=== PATIENT | female | born 1990 | race Two or more races ===

== ENCOUNTER 2016-10-22 16:51 | Emergency (ER) | payer MEDICAID ==
[~2016-10-22] VITALS: Ht 170.2 cm; Wt 104.3 kg
[2016-10-22 16:59] VITALS: BP 160/100
--- NOTE | 2016-10-22 19:21 | NUR ---
Patient returned from XRAY, transferred to bed 6. RN evaluating patient at bedside.
--- NOTE | 2016-10-22 19:23 | NUR ---
PATIENT PRESENTS TO ED WITH L KNEE PAIN X 2 DAYS, DENIES ANY DIRECT TRAUMA TO THE AREA . PT DENIES N/V/D; SKIN IS PINK/WARM/DRY; AAOX4 WITH EVEN AND STEADY GAIT; LUNGS CLEAR BL; HR EVEN AND REGULAR; PT DENIES ANY FEVER, CP, SOB, OR COUGH AT THIS TIME; PATIENT STATES PAIN OF 9/10 AT THIS TIME; VSS; PATIENT POSITIONED FOR COMFORT; HOB ELEVATED; BEDRAILS UP X2; BED DOWN. ER MD MADE AWARE OF PT STATUS.
--- NOTE | 2016-10-22 20:07 | NUR ---
Patient being evaluated by physician DR CÁRDENAS at bedside.
[2016-10-22] MEDS ORDERED: KETOROLAC 30 MG/ML VIAL IM ONE (20:30)
[2016-10-22] MEDS ORDERED: HYDROcodone/APAP 5/325 MG 1 TAB TAB PO ONE (20:30)
[2016-10-22 20:54] VITALS: BP 142/89
--- NOTE | 2016-10-22 20:55 | NUR ---
Patient discharged with v/s stable. Written and verbal after care instructions given and explained. Patient alert, oriented and verbalized understanding of instructions. Ambulatory with steady gait. All questions addressed prior to discharge. ID band removed. Patient advised to follow up with PMD. Rx of NAPROSYN 500MG AND NORCO 5/325MG given. Patient educated on indication of medication including possible reaction and side effects. Opportunity to ask questions provided and answered.
== END 2016-10-22 20:54 | disposition home or self-care (01) ==
LOC: MED 17:02
DX: S83.92XA Sprain of unspecified site of left knee, initial encounter (principal); F17.210 Nicotine dependence, cigarettes, uncomplicated; W01.0XXA Fall on same level from slipping, tripping and stumbling without subsequent striking against object, initial encounter; Y93.89 Activity, other specified; Y92.89 Other specified places as the place of occurrence of the external cause; Y99.8 Other external cause status
CPT/HCPCS: 29505; 73562; 96372; 99284; J1885

== ENCOUNTER 2017-12-09 22:32 | Inpatient (IN) | payer MEDICAID ==
[~2017-12-09] VITALS: Ht 170.2 cm; Wt 119.3 kg
[~2017-12-09 22:32] MED LIST: AMPICILLIN 2,000 MG VIAL ONE
[2017-12-09] MEDS ORDERED: PREN1SGL25 PO (22:48)
[2017-12-09] MEDS ORDERED: LACTATED RINGERS 1,000 ML IV SCH (22:49)
[2017-12-09] MEDS ORDERED: CARBOPROST 250 MCG/ML AMP IM PRN (22:50)
[2017-12-09] MEDS ORDERED: OXYTOCIN 10 UNITS/ML VIAL IM SCH (22:50)
[2017-12-09] MEDS ORDERED: NALBUPHINE HYDROCHLORIDE 10 MG/ML VIAL IVP PRN (22:50)
[2017-12-09] MEDS ORDERED: METHYLERGONOVINE 0.2 MG/ML AMP IM PRN (22:50)
[2017-12-09] MEDS ORDERED: PROMETHAZINE 25 MG/ML VIAL IVP PRN (22:50)
[2017-12-09] MEDS ORDERED: AMPICILLIN 2,000 MG in NACL 0.9% MINI-BAG PLUS 100 ML IV SCH (23:00)
[2017-12-09] MEDS ORDERED: NALBUPHINE HYDROCHLORIDE 10 MG/ML VIAL ONE (23:18)
[2017-12-09 23:29] LABS: BASOPHILS # (AUTO) 0.2 K/uL (0.00-0.22); BASOPHILS % (AUTO) 1.9 % (0.0-2.0); EOSINOPHILS # (AUTO) 0.1 K/uL (0-0.4); EOSINOPHILS % (AUTO) 0.8 % (0.0-4.0); HEMATOCRIT 37.5 % (36-48); HEMOGLOBIN 12.4 g/dL (12.0-16.0); LYMPHOCYTES # (AUTO) 2.7 K/uL (2.5-16.5); LYMPHOCYTES % (AUTO) 28.4 % (20.5-51.1); MEAN CORPUSCULAR HEMOGLOBIN 30 pg (27-31); MEAN CORPUSCULAR HGB CONC 33 g/dL (33-37); MEAN CORPUSCULAR VOLUME 89.5 fL (80-94); MONOCYTES # (AUTO) 0.5 K/uL (0.8-1.0); MONOCYTES % (AUTO) 5.2 % (1.7-9.3); NEUTROPHILS # (AUTO) 5.9 K/uL (1.8-7.7); NEUTROPHILS % (AUTO) 63.7 % (42.2-75.2); PLATELET COUNT (AUTO) 179 K/uL (140-450); RED BLOOD CELL COUNT(AUTO) 4.19 MIL/uL (4.20-5.40); RED CELL DISTRIBUTION WIDTH 15.4 % (11.6-13.7); WHITE BLOOD COUNT (AUTO) 9.4 K/uL (4.8-10.8)
[2017-12-09 23:50] LABS: ALBUMIN 2.3 g/dL (3.4-5.0); ANION GAP 13.4 (8-16); CARBON DIOXIDE 24.6 mmol/L (21-32); CREATININE 0.8 mg/dL (0.6-1.3); TOTAL BILIRUBIN 0.2 mg/dL (0.0-1.0)
[2017-12-10] MEDS ORDERED: OXYTOCIN 10 UNITS/ML VIAL ONE (00:02)
[2017-12-10] MEDS ORDERED: BUPIVACAINE-MPF 0.5% 10 ML VIAL INJ ONE (00:03)
[2017-12-10] MEDS ORDERED: OXYTOCIN 20 UNITS/LR PREMIX 1,000 ML IV ONE (01:42)
[2017-12-10] MEDS ORDERED: METHYLERGONOVINE 0.2 MG/ML AMP IM PRN (02:05)
[2017-12-10] MEDS ORDERED: BENZOCAINE/MENTHOL 20%-0.5% 60 GM CAN TP PRN (02:05)
[2017-12-10] MEDS ORDERED: IBUPROFEN 800 MG TAB PO PRN (02:05)
[2017-12-10] MEDS ORDERED: MEASLES, MUMPS, AND RUBELLA 1 VIAL SQVAC PRN (02:05)
[2017-12-10] MEDS ORDERED: oxyCODONE/APAP 5/325 MG 1 TAB TAB PO PRN (02:05)
[2017-12-10] MEDS ORDERED: OXYTOCIN 10 UNITS/ML VIAL IM PRN (02:05)
[2017-12-10] MEDS ORDERED: TEMAZEPAM 15 MG CAP PO PRN (02:05)
[2017-12-10 04:57] VITALS: BP 138/81
[2017-12-10] MEDS: HYDROcodone/APAP 5/325 MG 1 TAB TAB PO PRN ×2 (11:54→18:05)
[2017-12-10] MEDS ORDERED: DOCUSATE SOD/SENNA 50/8.6 MG 1 TAB PO SCH (21:00)
[2017-12-11] MEDS: HYDROcodone/APAP 5/325 MG 1 TAB TAB PO PRN (01:12)
[2017-12-11 08:43] LABS: HEMATOCRIT 30.7 % (36-48); HEMOGLOBIN 10.2 g/dL (12.0-16.0)
--- NOTE | 2017-12-11 11:07 | NUR ---
PATIENT HAS BEEN SCREENED AND CATEGORIZED LOW NUTRITION RISK. PATIENT WILL BE SEEN WITHIN 7 DAYS OF ADMISSION. 12/17/[address]
[2017-12-12] MEDS: HYDROcodone/APAP 5/325 MG 1 TAB TAB PO PRN (08:28)
[2017-12-12] MEDS ORDERED: IBUP-1842 PO (12:13)
== END 2017-12-12 16:15 | disposition home or self-care (01) | DRG 560 ==
LOC: MLD 22:32 → OBSVTOIN 22:49 → MFCC 12-10 08:15
PROVIDERS: ADMIT Obstetrics & Gynecology; ATTEND Obstetrics & Gynecology
PROC: 10907ZC Drainage of Amniotic Fluid, Therapeutic from Products of Conception, Via Natural or Artificial Opening (ICD-10-PCS; principal; 2017-12-09)
PROC: 10E0XZZ Delivery of Products of Conception, External Approach (ICD-10-PCS; 2017-12-09)
PROC: 3E033VJ Introduction of Other Hormone into Peripheral Vein, Percutaneous Approach (ICD-10-PCS; 2017-12-09)
PROC: 3E0R3BZ Introduction of Anesthetic Agent into Spinal Canal, Percutaneous Approach (ICD-10-PCS; 2017-12-09)
PROC: 00HU33Z Insertion of Infusion Device into Spinal Canal, Percutaneous Approach (ICD-10-PCS; 2017-12-09)
PROC: 3E0234Z Introduction of Serum, Toxoid and Vaccine into Muscle, Percutaneous Approach (ICD-10-PCS; 2017-12-09)
DX: O69.81X0 Labor and delivery complicated by cord around neck, without compression, not applicable or unspecified (principal); Z68.41 Body mass index [BMI] 40.0-44.9, adult; E66.01 Morbid (severe) obesity due to excess calories; O77.0 Labor and delivery complicated by meconium in amniotic fluid; O99.214 Obesity complicating childbirth; Z37.0 Single live birth; Z3A.40 40 weeks gestation of pregnancy; Z23 Encounter for immunization
CPT/HCPCS: 36415; 59409; 80053; 85018; 85025; 86592; 86886; 86900; 86901; 90715; G0378; J0290; J2300; J2590; J3490

== ENCOUNTER 2018-05-20 18:48 | Emergency (ER) | payer MEDICAID ==
[~2018-05-20] VITALS: Ht 170.2 cm; Wt 115.7 kg
[~2018-05-20 18:48] MED LIST changes: -AMPICILLIN 2,000 MG VIAL ONE; +IBUP-1842 PO; +PREN1SGL25 PO
[2018-05-20 18:52] VITALS: BP 128/72
--- NOTE | 2018-05-20 19:10 | NUR ---
27/F came in w c/o Epigastric pain with vomiting since this morning. Pt also reports dysuria. Abd soft, round , -tenderness, BS active x4. Denies diarrhea, hematuria. PMH: gallstones
[2018-05-20 19:51] LABS: BASOPHILS % (AUTO) 0.2 % (0.0-2.0); EOSINOPHILS % (AUTO) 0.2 % (0.0-4.0); HEMATOCRIT 41.9 % (36-48); HEMOGLOBIN 13.6 g/dL (12.0-16.0); LYMPHOCYTES # (AUTO) 1.6 K/uL (2.5-16.5); LYMPHOCYTES % (AUTO) 14.3 % (20.5-51.1); MEAN CORPUSCULAR HEMOGLOBIN 28 pg (27-31); MEAN CORPUSCULAR HGB CONC 33 g/dL (33-37); MEAN CORPUSCULAR VOLUME 86.2 fL (80-94); MONOCYTES # (AUTO) 0.5 K/uL (0.8-1.0); MONOCYTES % (AUTO) 4.7 % (1.7-9.3); NEUTROPHILS # (AUTO) 9.2 K/uL (1.8-7.7); NEUTROPHILS % (AUTO) 80.6 % (42.2-75.2); PLATELET COUNT (AUTO) 230 K/uL (140-450); RED BLOOD CELL COUNT(AUTO) 4.87 MIL/uL (4.20-5.40); RED CELL DISTRIBUTION WIDTH 15.8 % (11.6-13.7); WHITE BLOOD COUNT (AUTO) 11.4 K/uL (4.8-10.8)
[2018-05-20 20:05] LABS: ANION GAP 10.2 (8-16); CARBON DIOXIDE 29.7 mmol/L (21-32); CREATININE 0.6 mg/dL (0.6-1.3); POTASSIUM 3.9 mmol/L (3.5-5.1)
[2018-05-20 20:11] LABS: ALBUMIN 3.5 g/dL (3.4-5.0); TOTAL BILIRUBIN 0.1 mg/dL (0.0-1.0)
[2018-05-20] MEDS ORDERED: KETOROLAC 60 MG/2 ML VIAL IM ONE (21:05)
[2018-05-20] MEDS ORDERED: MORPHINE SULFATE 4 MG/ML SYR IM ONE (21:40)
[2018-05-20] MEDS ORDERED: ONDANSETRON 4 MG ODT PO ONE (21:40)
[2018-05-20 22:37] VITALS: BP 118/61
--- NOTE | 2018-05-20 22:37 | NUR ---
Patient discharged with v/s stable. Written and verbal after care instructions given and explained. Patient alert, oriented and verbalized understanding of instructions. Ambulatory with steady gait. All questions addressed prior to discharge. ID band removed. Patient advised to follow up with PMD. Rx of MOTRIN, ZOFRAN, NORCO given. Patient educated on indication of medication including possible reaction and side effects. Opportunity to ask questions provided and answered.
== END 2018-05-20 22:37 | disposition home or self-care (01) ==
LOC: MED 18:48
DX: R10.11 Right upper quadrant pain (principal); R11.2 Nausea with vomiting, unspecified; K21.9 Gastro-esophageal reflux disease without esophagitis
CPT/HCPCS: 36415; 80053; 81002; 81025; 83690; 85025; 96372; 99284; J1885; J2270; S0119

== ENCOUNTER 2018-07-04 17:13 | Emergency (ER) | payer MEDICAID ==
[~2018-07-04] VITALS: Ht 170.2 cm; Wt 120.3 kg
[2018-07-04 17:32] VITALS: BP 112/63
--- NOTE | 2018-07-04 17:39 | NUR ---
PATIENT AMBULATED TO BED 04 AT THIS TIME.
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
--- NOTE | 2018-07-04 18:42 | NUR ---
PT. RESTING IN BED, RR EVEN AND UNLABORED. BED IN LOWEST POSITION. BLANKET PROVIDED. WILL CONTINUE TO MONITOR.
--- NOTE | 2018-07-04 19:10 | NUR ---
Pt report given to DIANA ROBIN . Transfer of care at this time.
[2018-07-04] MEDS ORDERED: NACL 0.9% 1,000 ML IV ONE (19:30)
[2018-07-04] MEDS ORDERED: MORPHINE SULFATE 4 MG/ML SYR IVP ONE (19:30)
[2018-07-04] MEDS ORDERED: ONDANSETRON 4 MG/2 ML VIAL IVP ONE (19:30)
[2018-07-04 19:59] LABS: BASOPHILS % (AUTO) 0.2 % (0.0-2.0); HEMATOCRIT 41.7 % (36-48); HEMOGLOBIN 13.9 g/dL (12.0-16.0); LYMPHOCYTES # (AUTO) 1.3 K/uL (2.5-16.5); LYMPHOCYTES % (AUTO) 13.6 % (20.5-51.1); MEAN CORPUSCULAR HEMOGLOBIN 29 pg (27-31); MEAN CORPUSCULAR HGB CONC 33 g/dL (33-37); MEAN CORPUSCULAR VOLUME 86.2 fL (80-94); MONOCYTES # (AUTO) 0.5 K/uL (0.8-1.0); MONOCYTES % (AUTO) 4.8 % (1.7-9.3); NEUTROPHILS # (AUTO) 7.8 K/uL (1.8-7.7); NEUTROPHILS % (AUTO) 81.4 % (42.2-75.2); PLATELET COUNT (AUTO) 195 K/uL (140-450); RED BLOOD CELL COUNT(AUTO) 4.84 MIL/uL (4.20-5.40); RED CELL DISTRIBUTION WIDTH 15.7 % (11.6-13.7); WHITE BLOOD COUNT (AUTO) 9.5 K/uL (4.8-10.8)
--- NOTE | 2018-07-04 19:59 | NUR ---
PATIENT INFORMED THAT FAMILY CALLED FOR PATIENT, PATIENT STATES SHE WILL CALL FAMILY LATER.
[2018-07-04 20:13] LABS: ANION GAP 7.8 (8-16); CARBON DIOXIDE 29.2 mmol/L (21-32); CREATININE 0.8 mg/dL (0.6-1.3)
[2018-07-04 20:24] LABS: ALBUMIN 3.5 g/dL (3.4-5.0); TOTAL BILIRUBIN 0.4 mg/dL (0.0-1.0)
[2018-07-04 21:22] VITALS: BP 123/81
--- NOTE | 2018-07-04 21:23 | NUR ---
pt called family for ride home
== END 2018-07-04 21:22 | disposition home or self-care (01) ==
LOC: MED 17:13
DX: K21.9 Gastro-esophageal reflux disease without esophagitis (principal); Z79.899 Other long term (current) drug therapy
CPT/HCPCS: 36415; 74176; 80053; 81002; 81025; 83690; 85025; 96374; 96375; 99285; J2270; J2405; J7030

== ENCOUNTER 2018-08-10 16:53 | Emergency (ER) | payer MEDICAID ==
[~2018-08-10] VITALS: Ht 170.2 cm; Wt 119.3 kg
[2018-08-10 17:00] VITALS: BP 143/116
--- NOTE | 2018-08-10 17:02 | NUR ---
PT AMBULATED TO ER BED 10
--- NOTE | 2018-08-10 17:05 | NUR ---
27f bib self with c/o n/v/d with diffuse mid abdominal pain but mainly in ruq x 1 wk. Patient reports of nonbloody emesis and diarrhea. Patient denies any fevers or urinary complaints. Patient is aox4 to person, place, situation, and time. RR are even and unlabored. Abd soft and non tender. Patient changed into gown. Awaiting er md bautista. All needs met at this time. Will continue to monitor.
[2018-08-10] MEDS ORDERED: NACL 0.9% 1,000 ML IV ONE (17:10)
[2018-08-10] MEDS ORDERED: ONDANSETRON 4 MG/2 ML VIAL IVP ONE (17:10)
[2018-08-10] MEDS ORDERED: KETOROLAC 30 MG/ML VIAL IVP ONE (17:10)
--- NOTE | 2018-08-10 17:30 | NUR ---
ultrasound by bedside
[2018-08-10 17:32] LABS: BASOPHILS % (AUTO) 0.4 % (0.0-2.0); EOSINOPHILS # (AUTO) 0.1 K/uL (0-0.4); EOSINOPHILS % (AUTO) 1.4 % (0.0-4.0); HEMATOCRIT 42.1 % (36-48); HEMOGLOBIN 13.8 g/dL (12.0-16.0); LYMPHOCYTES # (AUTO) 2.8 K/uL (2.5-16.5); MEAN CORPUSCULAR HEMOGLOBIN 29 pg (27-31); MEAN CORPUSCULAR HGB CONC 33 g/dL (33-37); MEAN CORPUSCULAR VOLUME 86.7 fL (80-94); MONOCYTES # (AUTO) 0.6 K/uL (0.8-1.0); MONOCYTES % (AUTO) 6.7 % (1.7-9.3); NEUTROPHILS # (AUTO) 5.7 K/uL (1.8-7.7); NEUTROPHILS % (AUTO) 61.5 % (42.2-75.2); PLATELET COUNT (AUTO) 222 K/uL (140-450); RED BLOOD CELL COUNT(AUTO) 4.85 MIL/uL (4.20-5.40); RED CELL DISTRIBUTION WIDTH 15.3 % (11.6-13.7); WHITE BLOOD COUNT (AUTO) 9.2 K/uL (4.8-10.8)
[2018-08-10 17:45] LABS: ANION GAP 11.6 (8-16); CARBON DIOXIDE 30.5 mmol/L (21-32); CREATININE 0.8 mg/dL (0.6-1.3); POTASSIUM 4.1 mmol/L (3.5-5.1)
[2018-08-10 17:51] LABS: ALBUMIN 3.4 g/dL (3.4-5.0); TOTAL BILIRUBIN 0.3 mg/dL (0.0-1.0)
[2018-08-10 18:19] LABS: APPEARANCE,URINE CLEAR (CLEAR); BILIRUBIN,URINE NEGATIVE (NEGATIVE); BLOOD, URINE NEGATIVE (NEGATIVE); COLOR,URINE YELLOW (YELLOW); LEUKOCYTE ESTERASE ,URINE TRACE (NEGATIVE); NITRITE, URINE NEGATIVE (NEGATIVE); UGLUCOSE NEGATIVE (NEGATIVE)
[2018-08-10 18:26] LABS: RBC,URINE NONE SEEN /HPF (0-5)
[2018-08-10 18:38] VITALS: BP 138/85
--- NOTE | 2018-08-10 18:38 | NUR ---
Patient discharged with v/s stable. Written and verbal after care instructions given and explained. Patient alert, oriented and verbalized understanding of instructions. Ambulatory with steady gait. All questions addressed prior to discharge. ID band removed. Patient advised to follow up with PMD. Rx of ZOFRAN 4MG ODT, NORCO 5MG-325M AND IBUPROFEN 600MG given. Patient educated on indication of medication including possible reaction and side effects. Opportunity to ask questions provided and answered.
== END 2018-08-10 18:38 | disposition home or self-care (01) ==
LOC: MED 16:53
DX: K80.20 Calculus of gallbladder without cholecystitis without obstruction (principal); K21.9 Gastro-esophageal reflux disease without esophagitis; Z79.899 Other long term (current) drug therapy
CPT/HCPCS: 36415; 76705; 80053; 81001; 81025; 83690; 85025; 87086; 96361; 96374; 96375; 99284; J1885; J2405; J7030; Q0092

== ENCOUNTER 2018-10-01 21:11 | Inpatient (IN) | payer MEDICAID ==
[~2018-10-01] VITALS: Ht 170.2 cm; Wt 122.0 kg
[2018-10-01 21:18] VITALS: BP 143/81
[2018-10-01] MEDS ORDERED: MORPHINE SULFATE 4 MG/ML SYR IVP ONE ×2 (21:35→23:25)
[2018-10-01 21:54] LABS: APPEARANCE,URINE CLEAR (CLEAR); BILIRUBIN,URINE NEGATIVE (NEGATIVE); BLOOD, URINE NEGATIVE (NEGATIVE); COLOR,URINE YELLOW (YELLOW); LEUKOCYTE ESTERASE ,URINE NEGATIVE (NEGATIVE); NITRITE, URINE NEGATIVE (NEGATIVE); UGLUCOSE NEGATIVE (NEGATIVE)
[2018-10-01 22:05] LABS: RBC,URINE 0-5 (RARE) /HPF (0-5); URINE AMORPHOUS URATE 1+ /HPF (None Seen); WBC,URINE 0-5 (RARE) /HPF (0-5)
[2018-10-01] MEDS ORDERED: ONDANSETRON 4 MG/2 ML VIAL IVP ONE (22:05)
[2018-10-01 22:12] LABS: BASOPHILS % (AUTO) 0.1 % (0.0-2.0); EOSINOPHILS % (AUTO) 0.2 % (0.0-4.0); HEMOGLOBIN 13.9 g/dL (12.0-16.0); LYMPHOCYTES % (AUTO) 13.6 % (20.5-51.1); MEAN CORPUSCULAR HEMOGLOBIN 28 pg (27-31); MEAN CORPUSCULAR HGB CONC 32 g/dL (33-37); MEAN CORPUSCULAR VOLUME 86.8 fL (80-94); MONOCYTES # (AUTO) 0.7 K/uL (0.8-1.0); MONOCYTES % (AUTO) 4.6 % (1.7-9.3); NEUTROPHILS # (AUTO) 11.9 K/uL (1.8-7.7); NEUTROPHILS % (AUTO) 81.5 % (42.2-75.2); PLATELET COUNT (AUTO) 249 K/uL (140-450); RED BLOOD CELL COUNT(AUTO) 4.95 MIL/uL (4.20-5.40); RED CELL DISTRIBUTION WIDTH 15.1 % (11.6-13.7); WHITE BLOOD COUNT (AUTO) 14.6 K/uL (4.8-10.8)
[2018-10-01 22:20] LABS: ANION GAP 10.9 (8-16); CARBON DIOXIDE 31.1 mmol/L (21-32); CREATININE 0.7 mg/dL (0.6-1.3)
[2018-10-01] MEDS ORDERED: NACL 0.9% 1,000 ML IV ONE (22:25)
[2018-10-01 22:26] LABS: ALBUMIN 3.8 g/dL (3.4-5.0); TOTAL BILIRUBIN 0.5 mg/dL (0.0-1.0)
[2018-10-02] MEDS: DEXT 5% / NACL 0.45% 1,000 ML IV SCH ×3 (00:13→19:36)
[2018-10-02] MEDS ORDERED: ONDANSETRON 4 MG/2 ML VIAL IM/IVP PRN (00:15)
[2018-10-02] MEDS ORDERED: LORazepam 2 MG/ML VIAL IM/IVP PRN (00:15)
[2018-10-02] MEDS ORDERED: ACETAMINOPHEN 325 MG TAB PO PRN (00:15)
[2018-10-02] MEDS ORDERED: DOCUSATE SODIUM 100 MG GELCAP PO PRN (00:15)
[2018-10-02] MEDS ORDERED: ZOLPIDEM 5 MG TAB PO PRN (00:15)
[2018-10-02] MEDS ORDERED: HYDROcodone/APAP 5/325 MG 1 TAB TAB PO PRN (00:15)
[2018-10-02 01:00] VITALS: BP 111/66
[2018-10-02 01:05] LABS: MAGNESIUM 1.6 mg/dL (1.8-2.4); PHOSPHORUS 3.9 mg/dL (2.5-4.9); THYROID STIMULATING HORMONE 0.87 uIU/mL (0.34-3.74)
[2018-10-02 01:25] LABS: PROTHROMBIN TIME 9.6 secs (10.8-13.4)
[2018-10-02] MEDS ORDERED: MAG SULF 2000 MG/WATER PREMIX 50 ML IV SCH (03:20)
[2018-10-02] MEDS ORDERED: cefTRIAXone 1,000 MG VIAL ONE (03:44)
[2018-10-02 04:00] VITALS: BP 115/76
[2018-10-02] MEDS: metroNIDAZOLE 500 MG/NS PREMIX 100 ML IV SCH ×3 (04:53→20:19)
[2018-10-02] MEDS ORDERED: INFLUENZA VIRUS VACCINE QUAD 0.5 ML SYR IMVAC PRN (05:20)
[2018-10-02 06:25] LABS: BARBITURATE, URINE NEG. ng/ml (NEG <=200); BENZODIAZEPINE, URINE NEG. ng/mL (NEG <=200); CANNABINOID, URINE POS. ng/mL (NEG <=50); COCAINE, URINE NEG. ng/mL (NEG <=300); OPIATE, URINE POS. ng/mL (NEG <=2000); PHENCYCLIDINE SCREEN,URINE NEG. ng/mL (NEG <=25)
[2018-10-02 08:00] VITALS: BP 100/64
[2018-10-02 12:00] VITALS: BP 99/56
[2018-10-02 15:23] LABS: BASOPHILS % (AUTO) 0.4 % (0.0-2.0); EOSINOPHILS # (AUTO) 0.1 K/uL (0-0.4); EOSINOPHILS % (AUTO) 1.1 % (0.0-4.0); HEMATOCRIT 40.6 % (36-48); HEMOGLOBIN 13.2 g/dL (12.0-16.0); MEAN CORPUSCULAR HEMOGLOBIN 28 pg (27-31); MEAN CORPUSCULAR HGB CONC 32 g/dL (33-37); MEAN CORPUSCULAR VOLUME 86.8 fL (80-94); MONOCYTES # (AUTO) 0.7 K/uL (0.8-1.0); MONOCYTES % (AUTO) 6.4 % (1.7-9.3); NEUTROPHILS # (AUTO) 8.1 K/uL (1.8-7.7); NEUTROPHILS % (AUTO) 74.1 % (42.2-75.2); PLATELET COUNT (AUTO) 218 K/uL (140-450); RED BLOOD CELL COUNT(AUTO) 4.68 MIL/uL (4.20-5.40); RED CELL DISTRIBUTION WIDTH 15.2 % (11.6-13.7); WHITE BLOOD COUNT (AUTO) 10.9 K/uL (4.8-10.8)
[2018-10-02 15:38] LABS: ANION GAP 10.7 (8-16); CARBON DIOXIDE 30.3 mmol/L (21-32); CREATININE 0.7 mg/dL (0.6-1.3)
[2018-10-02 16:00] VITALS: BP 100/62
[2018-10-02] MEDS ORDERED: MORPHINE SULFATE 4 MG/ML SYR IVP SCH (18:30)
[2018-10-02 20:00] VITALS: BP 120/72
[2018-10-02] MEDS: NACL 0.9% 1,000 ML IV SCH (21:35)
[2018-10-03] VITALS: BP 122/81
[2018-10-03] MEDS ORDERED: KETOROLAC 30 MG/ML VIAL IVP PRN (01:00)
[2018-10-03] MEDS: metroNIDAZOLE 500 MG/NS PREMIX 100 ML IV SCH ×2 (04:48→13:00)
[2018-10-03] MEDS: NACL 0.9% 1,000 ML IV SCH (04:49)
[2018-10-03 07:00] LABS: BASOPHILS % (AUTO) 0.3 % (0.0-2.0); EOSINOPHILS # (AUTO) 0.1 K/uL (0-0.4); EOSINOPHILS % (AUTO) 1.3 % (0.0-4.0); HEMATOCRIT 39.3 % (36-48); HEMOGLOBIN 12.9 g/dL (12.0-16.0); LYMPHOCYTES # (AUTO) 2.2 K/uL (2.5-16.5); LYMPHOCYTES % (AUTO) 20.1 % (20.5-51.1); MEAN CORPUSCULAR HEMOGLOBIN 29 pg (27-31); MEAN CORPUSCULAR HGB CONC 33 g/dL (33-37); MEAN CORPUSCULAR VOLUME 87.1 fL (80-94); MONOCYTES # (AUTO) 0.9 K/uL (0.8-1.0); MONOCYTES % (AUTO) 7.8 % (1.7-9.3); NEUTROPHILS # (AUTO) 7.8 K/uL (1.8-7.7); NEUTROPHILS % (AUTO) 70.5 % (42.2-75.2); PLATELET COUNT (AUTO) 219 K/uL (140-450); RED BLOOD CELL COUNT(AUTO) 4.52 MIL/uL (4.20-5.40); RED CELL DISTRIBUTION WIDTH 15.4 % (11.6-13.7); WHITE BLOOD COUNT (AUTO) 11.1 K/uL (4.8-10.8)
[2018-10-03 07:43] LABS: ANION GAP 9.4 (8-16); CARBON DIOXIDE 30.6 mmol/L (21-32); CREATININE 0.7 mg/dL (0.6-1.3)
[2018-10-03 07:49] LABS: MAGNESIUM 1.8 mg/dL (1.8-2.4)
[2018-10-03 07:50] LABS: CHOL/HDL RATIO 3.7 (1-4.5)
[2018-10-03 08:00] VITALS: BP 104/62
[2018-10-03] MEDS ORDERED: ACET-9525 PO (08:56)
[2018-10-03] MEDS ORDERED: LACT10CA1 PO (10:15)
[2018-10-03] MEDS ORDERED: CEPH250C16 PO (10:15)
[2018-10-03] MEDS ORDERED: METR250T2 PO (10:15)
== END 2018-10-03 15:40 | disposition home or self-care (01) ==
LOC: MED 21:11 → MTU 10-02 00:18
PROVIDERS: ADMIT General Practice; ATTEND General Practice
DX: K80.00 Calculus of gallbladder with acute cholecystitis without obstruction (principal); E66.01 Morbid (severe) obesity due to excess calories; K76.0 Fatty (change of) liver, not elsewhere classified; E83.42 Hypomagnesemia; I10 Essential (primary) hypertension; E87.1 Hypo-osmolality and hyponatremia; K21.9 Gastro-esophageal reflux disease without esophagitis; F17.210 Nicotine dependence, cigarettes, uncomplicated; F12.99 Cannabis use, unspecified with unspecified cannabis-induced disorder; Z83.3 Family history of diabetes mellitus; Z82.49 Family history of ischemic heart disease and other diseases of the circulatory system; Z68.41 Body mass index [BMI] 40.0-44.9, adult; Z71.3 Dietary counseling and surveillance; Z82.3 Family history of stroke; Z23 Encounter for immunization
CPT/HCPCS: 36415; 71045; 76705; 78445; 80048; 80053; 80305; 81001; 83036; 83605; 83690; 83735; 83880; 84100; 84443; 85025; 85610; 85730; 87040; 87081; 90658; 96361; 96374; 96375; 96376; 99285; J0696; J1885; J2270; J2405; J3475; J3490; J7030; J7060; Q0092

== ENCOUNTER 2019-02-01 17:37 | Emergency (ER) | payer MEDICAID ==
[~2019-02-01] VITALS: Ht 170.2 cm; Wt 121.8 kg
[~2019-02-01 17:37] MED LIST changes: +ACET-9525 PO; +CEPH250C16 PO; -IBUP-1842 PO; +LACT10CA1 PO; +METR250T2 PO
[2019-02-01 17:42] VITALS: BP 115/75
--- NOTE | 2019-02-01 17:47 | NUR ---
PT PROVIDED URINE SAMPLE AND THEN AMBULATED BACK TO LOBBY WITH CHEESE PLATER IN HANDS AND VSS.
[2019-02-01 18:07] LABS: BASOPHILS % (AUTO) 0.2 % (0.0-2.0); EOSINOPHILS # (AUTO) 0.1 K/uL (0-0.4); EOSINOPHILS % (AUTO) 0.8 % (0.0-4.0); HEMATOCRIT 36.4 % (36-48); HEMOGLOBIN 12.2 g/dL (12.0-16.0); LYMPHOCYTES # (AUTO) 2.2 K/uL (2.5-16.5); MEAN CORPUSCULAR HEMOGLOBIN 30 pg (27-31); MEAN CORPUSCULAR HGB CONC 34 g/dL (33-37); MEAN CORPUSCULAR VOLUME 88.8 fL (80-94); MONOCYTES # (AUTO) 0.4 K/uL (0.8-1.0); MONOCYTES % (AUTO) 5.2 % (1.7-9.3); NEUTROPHILS # (AUTO) 5.7 K/uL (1.8-7.7); NEUTROPHILS % (AUTO) 67.8 % (42.2-75.2); PLATELET COUNT (AUTO) 243 K/uL (140-450); RED CELL DISTRIBUTION WIDTH 15.5 % (11.6-13.7); WHITE BLOOD COUNT (AUTO) 8.5 K/uL (4.8-10.8)
[2019-02-01 18:10] LABS: APPEARANCE,URINE CLEAR (CLEAR); BILIRUBIN,URINE NEGATIVE (NEGATIVE); BLOOD, URINE NEGATIVE (NEGATIVE); COLOR,URINE YELLOW (YELLOW); LEUKOCYTE ESTERASE ,URINE NEGATIVE (NEGATIVE); NITRITE, URINE NEGATIVE (NEGATIVE); UGLUCOSE NEGATIVE (NEGATIVE)
[2019-02-01 18:17] LABS: ANION GAP 15.1 (8-16); CARBON DIOXIDE 24.6 mmol/L (21-32); CREATININE 0.7 mg/dL (0.6-1.3); POTASSIUM 3.7 mmol/L (3.5-5.1)
[2019-02-01 18:23] LABS: ALBUMIN 2.9 g/dL (3.4-5.0); TOTAL BILIRUBIN 0.3 mg/dL (0.0-1.0)
--- NOTE | 2019-02-01 19:15 | NUR ---
PT TO ED WITH C/O ABD PAIN X2 DAYS. PT REPORTS INTERMITENT SHARP/BURNING PAIN LOWER ABD PAIN THAT RADIATES TO EPIGASTRIC REGION AT 7/10. PT REPORTS N/V. BOWEL SOUNDS ACTIVE. NO DISTENTION NOTED. PT REPORTS MILD PAIN UPON PALPATION. PT PLACED INTO BED, PENDING MD LUQUE.
--- NOTE | 2019-02-01 19:45 | NUR ---
DR PARADA AT BEDSIDE FOR PT EVALUATION
--- NOTE | 2019-02-01 23:14 | NUR ---
Patient discharged with v/s stable. Written and verbal after care instructions given and explained. Patient verbalized understanding. Ambulatory with steady gait. All questions addressed prior to discharge. Advised to follow up with PMD.
[2019-02-01 23:17] VITALS: BP 128/70
== END 2019-02-01 23:14 | disposition home or self-care (01) ==
LOC: MED 17:37
DX: O26.892 Other specified pregnancy related conditions, second trimester (principal); R10.33 Periumbilical pain; O21.9 Vomiting of pregnancy, unspecified; O99.332 Smoking (tobacco) complicating pregnancy, second trimester; Z3A.15 15 weeks gestation of pregnancy; K21.9 Gastro-esophageal reflux disease without esophagitis; Z98.890 Other specified postprocedural states; Z79.891 Long term (current) use of opiate analgesic; Z79.2 Long term (current) use of antibiotics; Z79.899 Other long term (current) drug therapy
CPT/HCPCS: 36415; 76817; 80053; 81003; 81025; 83690; 84702; 85025; 86901; 99284; Q0092

== ENCOUNTER 2019-02-10 11:31 | Emergency (ER) | payer MEDICAID ==
[~2019-02-10] VITALS: Ht 170.2 cm; Wt 122.0 kg
[2019-02-10 11:37] VITALS: BP 114/64
--- NOTE | 2019-02-10 11:42 | NUR ---
PT PROVIDED WITH UA CUP AND HOW TO PROVIDE CLEAN INSTRUCTIONS PROVIDED TO PATIENT. PT VERBALIZED UNDERSTANDING.
[2019-02-10 12:29] LABS: BASOPHILS % (AUTO) 0.4 % (0.0-2.0); EOSINOPHILS # (AUTO) 0.1 K/uL (0-0.4); EOSINOPHILS % (AUTO) 0.8 % (0.0-4.0); HEMATOCRIT 35.8 % (36-48); LYMPHOCYTES % (AUTO) 26.9 % (20.5-51.1); MEAN CORPUSCULAR HEMOGLOBIN 30 pg (27-31); MEAN CORPUSCULAR HGB CONC 34 g/dL (33-37); MEAN CORPUSCULAR VOLUME 89.6 fL (80-94); MONOCYTES # (AUTO) 0.4 K/uL (0.8-1.0); MONOCYTES % (AUTO) 5.9 % (1.7-9.3); NEUTROPHILS # (AUTO) 4.8 K/uL (1.8-7.7); PLATELET COUNT (AUTO) 224 K/uL (140-450); RED BLOOD CELL COUNT(AUTO) 3.99 MIL/uL (4.20-5.40); RED CELL DISTRIBUTION WIDTH 14.9 % (11.6-13.7); WHITE BLOOD COUNT (AUTO) 7.3 K/uL (4.8-10.8)
[2019-02-10 12:33] LABS: APPEARANCE,URINE CLEAR (CLEAR); BILIRUBIN,URINE NEGATIVE (NEGATIVE); BLOOD, URINE NEGATIVE (NEGATIVE); COLOR,URINE YELLOW (YELLOW); LEUKOCYTE ESTERASE ,URINE NEGATIVE (NEGATIVE); NITRITE, URINE NEGATIVE (NEGATIVE); UGLUCOSE NEGATIVE (NEGATIVE)
--- NOTE | 2019-02-10 13:00 | NUR ---
PT AMBULATED TO ER BED 3
--- NOTE | 2019-02-10 13:10 | NUR ---
PATIENT TAKEN TO US VIA WHEELCHAIR WITH TECH.
--- NOTE | 2019-02-10 13:30 | NUR ---
PATIENT RETURN FROM US.
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
[2019-02-10 14:25] LABS: ANION GAP 11.3 (8-16); CARBON DIOXIDE 24.8 mmol/L (21-32); CREATININE 0.6 mg/dL (0.6-1.3); POTASSIUM 4.1 mmol/L (3.5-5.1)
[2019-02-10 14:31] LABS: ALBUMIN 2.8 g/dL (3.4-5.0); TOTAL BILIRUBIN 0.2 mg/dL (0.0-1.0)
[2019-02-10 16:02] VITALS: BP 138/82
== END 2019-02-10 16:02 | disposition home or self-care (01) ==
LOC: MED 11:31
DX: O20.9 Hemorrhage in early pregnancy, unspecified (principal); O26.892 Other specified pregnancy related conditions, second trimester; R10.30 Lower abdominal pain, unspecified; Z3A.16 16 weeks gestation of pregnancy; K21.9 Gastro-esophageal reflux disease without esophagitis; Z79.891 Long term (current) use of opiate analgesic; Z79.2 Long term (current) use of antibiotics; Z79.899 Other long term (current) drug therapy
CPT/HCPCS: 36415; 76805; 80053; 81003; 81025; 82150; 83690; 84702; 85025; 86900; 86901; 99284; Q0092

== ENCOUNTER 2019-12-25 12:12 | Emergency (ER) | payer OTHER, SELFPAY ==
[~2019-12-25] VITALS: Ht 160 cm; Wt 6.8 kg
[2019-12-25 12:20] VITALS: BP 118/84
[2019-12-25 13:21] VITALS: BP 118/84
== END 2019-12-25 13:20 | disposition home or self-care (01) ==
LOC: EEVIPCON 12:12 → MED 12:12
DX: R05 Cough (principal); K21.9 Gastro-esophageal reflux disease without esophagitis; F17.200 Nicotine dependence, unspecified, uncomplicated; Z98.890 Other specified postprocedural states; Z79.899 Other long term (current) drug therapy
CPT/HCPCS: 99283

== ENCOUNTER 2020-05-09 18:56 | Emergency (ER) | payer OTHER, SELFPAY ==
[~2020-05-09] VITALS: Ht 170.2 cm; Wt 120.7 kg
[2020-05-09 19:10] VITALS: BP 133/75
--- NOTE | 2020-05-09 19:16 | NUR ---
PT AMBULATED TO BED 12 WITH STEADY GAIT.
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
--- NOTE | 2020-05-09 20:01 | NUR ---
PT TRIED TO URINATE, STILL UNABLE, GAVE MORE WATER, PT WILL TRY AGAIN SOON
--- NOTE | 2020-05-09 21:27 | NUR ---
URINE SAMPLE OBTAINED AND LEFT FOR LAB TO EKG TECHNICIAN
[2020-05-09 21:59] VITALS: BP 133/75
[2020-05-09 22:03] LABS: BASOPHILS % (AUTO) 0.4 % (0.0-2.0); EOSINOPHILS # (AUTO) 0.1 K/uL (0-0.4); EOSINOPHILS % (AUTO) 1.2 % (0.0-4.0); HEMATOCRIT 37.5 % (36-48); HEMOGLOBIN 12.6 g/dL (12.0-16.0); LYMPHOCYTES # (AUTO) 2.6 K/uL (2.5-16.5); LYMPHOCYTES % (AUTO) 31.3 % (20.5-51.1); MEAN CORPUSCULAR HEMOGLOBIN 31 pg (27-31); MEAN CORPUSCULAR HGB CONC 34 g/dL (33-37); MEAN CORPUSCULAR VOLUME 91.8 fL (80-94); MONOCYTES # (AUTO) 0.5 K/uL (0.8-1.0); MONOCYTES % (AUTO) 5.7 % (1.7-9.3); NEUTROPHILS % (AUTO) 61.4 % (42.2-75.2); PLATELET COUNT (AUTO) 211 K/uL (140-450); RED BLOOD CELL COUNT(AUTO) 4.08 MIL/uL (4.20-5.40); RED CELL DISTRIBUTION WIDTH 14.8 % (11.6-13.7); WHITE BLOOD COUNT (AUTO) 8.2 K/uL (4.8-10.8)
[2020-05-09 22:17] LABS: ALBUMIN 3.4 g/dL (3.4-5.0); ANION GAP 10.9 (8-16); CARBON DIOXIDE 26.8 mmol/L (21-32); CREATININE 0.7 mg/dL (0.6-1.3); POTASSIUM 3.7 mmol/L (3.5-5.1); TOTAL BILIRUBIN 0.4 mg/dL (0.0-1.0)
== END 2020-05-09 21:59 | disposition home or self-care (01) ==
LOC: MED 18:56
DX: O20.0 Threatened abortion (principal); O26.851 Spotting complicating pregnancy, first trimester; K21.9 Gastro-esophageal reflux disease without esophagitis; Z3A.01 Less than 8 weeks gestation of pregnancy; Z79.899 Other long term (current) drug therapy
CPT/HCPCS: 36415; 80053; 81025; 84702; 85025; 99283

== ENCOUNTER 2020-05-10 14:58 | Emergency (ER) | payer MEDICAID ==
[~2020-05-10] VITALS: Ht 170.2 cm; Wt 120.7 kg
[2020-05-10 15:02] VITALS: BP 131/74
[2020-05-10] MEDS ORDERED: NACL 0.9% 1,000 ML IV ONE (15:15)
[2020-05-10] MEDS ORDERED: ONDANSETRON 4 MG/2 ML VIAL IVP ONE (15:15)
--- NOTE | 2020-05-10 15:18 | NUR ---
c/o lower abdominal pain with nausea and emesis x 2 days---seen in our ER yesterday but had to leave early---vaginal bleeding moreso today than yesterday=--- denies injury
[2020-05-10 15:48] LABS: BASOPHILS % (AUTO) 0.4 % (0.0-2.0); EOSINOPHILS # (AUTO) 0.1 K/uL (0-0.4); EOSINOPHILS % (AUTO) 1.4 % (0.0-4.0); HEMATOCRIT 37.8 % (36-48); HEMOGLOBIN 12.3 g/dL (12.0-16.0); LYMPHOCYTES # (AUTO) 2.5 K/uL (2.5-16.5); LYMPHOCYTES % (AUTO) 34.6 % (20.5-51.1); MEAN CORPUSCULAR HEMOGLOBIN 30 pg (27-31); MEAN CORPUSCULAR HGB CONC 33 g/dL (33-37); MEAN CORPUSCULAR VOLUME 92.7 fL (80-94); MONOCYTES # (AUTO) 0.4 K/uL (0.8-1.0); MONOCYTES % (AUTO) 5.9 % (1.7-9.3); NEUTROPHILS # (AUTO) 4.3 K/uL (1.8-7.7); NEUTROPHILS % (AUTO) 57.7 % (42.2-75.2); PLATELET COUNT (AUTO) 218 K/uL (140-450); RED BLOOD CELL COUNT(AUTO) 4.07 MIL/uL (4.20-5.40); RED CELL DISTRIBUTION WIDTH 15.1 % (11.6-13.7); WHITE BLOOD COUNT (AUTO) 7.4 K/uL (4.8-10.8)
--- NOTE | 2020-05-10 15:51 | NUR ---
ultrasound at bedside
[2020-05-10 16:49] VITALS: BP 127/76
--- NOTE | 2020-05-10 16:50 | NUR ---
Patient discharged with v/s stable. Written and verbal after care instructions given and explained. Patient verbalized understanding. Ambulatory with steady gait. All questions addressed prior to discharge. Advised to follow up with PMD. diagnostic results handed to pt for f/u with pmd
== END 2020-05-10 16:50 | disposition home or self-care (01) ==
LOC: MED 14:58
DX: O03.9 Complete or unspecified spontaneous abortion without complication (principal); K21.9 Gastro-esophageal reflux disease without esophagitis; F12.10 Cannabis abuse, uncomplicated; E13.21 Other specified diabetes mellitus with diabetic nephropathy; Z79.899 Other long term (current) drug therapy; Z79.2 Long term (current) use of antibiotics
CPT/HCPCS: 36415; 76801; 84702; 85025; 96361; 96374; 99284; J2405; Q0092; J7030

== ENCOUNTER 2021-01-06 21:21 | Emergency (ER) | payer MEDICAID ==
[~2021-01-06] VITALS: Ht 170.2 cm; Wt 72.6 kg
[~2021-01-06 21:21] MED LIST changes: +METR-520 PO; -METR250T2 PO
[2021-01-06 21:27] VITALS: BP 109/87
--- NOTE | 2021-01-06 21:27 | NUR ---
TO BED AMBULATORY
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
--- NOTE | 2021-01-06 22:18 | NUR ---
xray at bedside
--- NOTE | 2021-01-06 22:46 | NUR ---
Serafin beltre in [facility] - 01/06/21 at 2248 by LEORA XRAY AT BEDSIDE
--- NOTE | 2021-01-06 22:51 | NUR ---
ortho shoe size womens large placed on pt l foot and fastened. +csm
[2021-01-06 22:55] VITALS: BP 109/87
--- NOTE | 2021-01-06 22:55 | NUR ---
Patient discharged with v/s stable. Written and verbal after care instructions given and explained. Patient verbalized understanding. Ambulatory with a boot on left foot and steady gait. ID band removed. All questions addressed prior to discharge. Advised to follow up with PMD.
== END 2021-01-06 22:55 | disposition home or self-care (01) ==
LOC: MED 21:21
DX: S92.512A Displaced fracture of proximal phalanx of left lesser toe(s), initial encounter for closed fracture (principal); K21.9 Gastro-esophageal reflux disease without esophagitis; Z79.899 Other long term (current) drug therapy; X58.XXXA Exposure to other specified factors, initial encounter; Y93.89 Activity, other specified; Y92.89 Other specified places as the place of occurrence of the external cause; Y99.8 Other external cause status
CPT/HCPCS: 29515; 73660; 99283